=== PATIENT | female | born 1940 | race Caucasian/White ===

== ENCOUNTER 2016-07-01 01:50 | Emergency (ER) | payer OTHER ==
[~2016-07-01] VITALS: Ht 162.6 cm; Wt 68.7 kg
[~2016-07-01 01:50] MED LIST: ATIVAN1 MG PO; BUSPAR15 MG PO; CEFDINIR300 MG PO; CELEXA40 MG PO; CLONAZEPAM0.5 MG PO; COLACE100 MG PO; Cipro PO; Combivent IH; EFFEXOR37.5 MG PO; K-DUR20 MEQ PO; K-Dur PO; LISINOPRIL10 MG PO; LORAZEPAM0.5 MG PO; QUETIAPINE FUMA50 MG PO; REMERON15 M2 PO; TRAZODONE HCL50 MG PO; TYLENOL ARTHRI650 MG PO; XANAX0.5 MG PO; Xanax PO; ZESTRIL10 MG PO; ZITHROMAX Z-PA250 MG PO; ZYPREXA ZYDIS5 MG PO; Zestril,Prinivil PO; seroquel
[2016-07-01 02:45] LABS: MCH 28.9 PG (29.0-34.0); MCHC 34.2 G/DL (30.0-36.0); MCV 84.5 FL (83-99); MEAN PLAT.VOLUME 8.5 uM^3 (9.5-12.4); PLATELET COUNT 241 K/uL (156-360); RBC DIS.WIDTH-CV 14.5 % (11.8-14.6); RBC DIS.WIDTH-SD 43.5 % (39-53); RED BLOOD COUNT 4.26 M/uL (3.80-5.20); WHITE BLOOD COUNT 10.3 K/uL (4.1-10.2)
[2016-07-01 02:55] LABS: CHLORIDE 100 mEq/L (99-109); POTASSIUM 4.5 mEq/L (3.7-5.4); SODIUM 135 mEq/L (136-147)
[2016-07-01 02:56] LABS: GLUCOSE 98 mg/dL (70-99); PROTHROMBIN TIME 10.2 (9.2-11.2)
[2016-07-01 02:58] LABS: ANION GAP 12 MEQ/L (2-14)
[2016-07-01 03:00] LABS: GFR ESTIMATE (CALCULATED) 33 mL/min/
[2016-07-01 03:01] LABS: UREA NITROGEN (BUN) 31 mg/dL (9-23)
[2016-07-01 05:03] LABS: ADD MIUA? YES; BILIRUBIN NEGATIVE; BLOOD SMALL; COLOR YELLOW ((YELLOW)); GLUCOSE (STRIP) NEGATIVE; KETONES NEGATIVE; LEUKOCYTES NEGATIVE; NITRITE NEGATIVE; PROTEIN (STRIP) NEGATIVE; SPECIFIC GRAVITY 1.006 (1.000-1.030); UCUL ADDED? YES; UROBILINOGEN 0.2 MG/DL (0.2-1.0)
[2016-07-01 05:09] LABS: BACTERIA NONE SEEN /HPF; EPITHELIAL CELLS RARE /HPF; MUCUS TRACE /LPF; RED BLOOD CELLS 0-5 /HPF (0-5)
[2016-07-01 07:33] VITALS: BP 114/68
== END 2016-07-01 07:45 | disposition home or self-care (01) ==
LOC: EME → EDBD 01:50 → EME 07:45
PROVIDERS: Emergency Medicine
DX: F41.0 Panic disorder [episodic paroxysmal anxiety] (principal); S00.83XA Contusion of other part of head, initial encounter; W19.XXXA Unspecified fall, initial encounter; I10 Essential (primary) hypertension
CPT/HCPCS: 70450; 80048; 81003; 85027; 85610; 85730; 87086; 99281; 99284; J1630; J7030

== ENCOUNTER 2016-09-01 21:53 | Emergency (ER) | payer OTHER ==
[~2016-09-01] VITALS: Ht 165.1 cm; Wt 68.1 kg
[2016-09-02 00:03] LABS: ADD MIUA? NO; BILIRUBIN NEGATIVE; BLOOD NEGATIVE; COLOR YELLOW ((YELLOW)); GLUCOSE (STRIP) NEGATIVE; KETONES NEGATIVE; LEUKOCYTES NEGATIVE; NITRITE NEGATIVE; PROTEIN (STRIP) NEGATIVE; SPECIFIC GRAVITY 1.015 (1.000-1.030); UCUL ADDED? NO; UROBILINOGEN 0.2 MG/DL (0.2-1.0)
[2016-09-02 00:42] VITALS: BP 119/83
== END 2016-09-02 00:52 | disposition home or self-care (01) ==
LOC: EME 21:53
PROVIDERS: Emergency Medicine
DX: F41.9 Anxiety disorder, unspecified (principal); G47.00 Insomnia, unspecified; I10 Essential (primary) hypertension
CPT/HCPCS: 81003; 99281; 99284

== ENCOUNTER 2016-09-05 12:15 | Emergency (ER) | payer OTHER ==
[~2016-09-05] VITALS: Ht 167.6 cm; Wt 69.3 kg
[2016-09-05 13:05] LABS: BASOPHIL COUNT 0.1 K/uL (0-0.1); EOSINOPHIL (%) 3.4 % (0-5); EOSINOPHIL COUNT 0.2 K/uL (0-0.3); HEMATOCRIT 40.4 % (36.0-46.0); IMMATURE GRANULOCYTE (%) 0.6 % (0.0-0.7); INSTRUMENT ABS NEUTROPHIL CT 4.1 K/uL; MCH 27.5 PG (29.0-34.0); MCHC 32.2 G/DL (30.0-36.0); MCV 85.4 FL (83-99); MONOCYTE (%) 10.8 % (3-12); MONOCYTE COUNT 0.8 K/uL (0-0.8); NEUTROPHIL COUNT 4.1 K/uL (1.8-6.4); PLATELET COUNT 215 K/uL (156-360); RBC DIS.WIDTH-CV 13.1 % (11.8-14.6); RBC DIS.WIDTH-SD 41.1 % (39-53); RED BLOOD COUNT 4.73 M/uL (3.80-5.20); WHITE BLOOD COUNT 7.1 K/uL (4.1-10.2)
[2016-09-05 13:13] LABS: CHLORIDE 98 mEq/L (99-109); POTASSIUM 4.4 mEq/L (3.7-5.4); SODIUM 135 mEq/L (136-147)
[2016-09-05 13:15] LABS: GLUCOSE 98 mg/dL (70-99)
[2016-09-05 13:17] LABS: ANION GAP 14 MEQ/L (2-14); TOTAL BILIRUBIN 0.9 mg/dL (0.0-1.0)
[2016-09-05 13:18] LABS: SERUM ETHYL ALCOHOL < 10 mg/dL
[2016-09-05 13:19] LABS: ALKALINE PHOSPHATASE 99 IU/L (3-129); GFR ESTIMATE (CALCULATED) 46 mL/min/
[2016-09-05 13:20] LABS: UREA NITROGEN (BUN) 24 mg/dL (9-23)
[2016-09-05 13:21] LABS: DIRECT BILIRUBIN 0.3 mg/dL (0.0-0.3)
[2016-09-05 14:46] LABS: ADD MIUA? NO; BILIRUBIN NEGATIVE; BLOOD NEGATIVE; COLOR STRAW ((YELLOW)); GLUCOSE (STRIP) NEGATIVE; KETONES NEGATIVE; LEUKOCYTES NEGATIVE; NITRITE NEGATIVE; PROTEIN (STRIP) NEGATIVE; SPECIFIC GRAVITY 1.006 (1.000-1.030); UCUL ADDED? NO; UROBILINOGEN 0.2 MG/DL (0.2-1.0)
[2016-09-05 14:51] LABS: AMPHETAMINE NEGATIVE (500 ng/mL); BARBITURATES NEGATIVE (200 ng/mL); BENZODIAZEPINES PRESUMPTIVE POSITIVE (150 ng/mL); COCAINE NEGATIVE (150 ng/mL); INTERNAL CONTROLS VALID? YES; METHADONE NEGATIVE (200 ng/mL); METHAMPHETAMINE NEGATIVE (500 ng/mL); OPIATES (MORPHINE) NEGATIVE (100 ng/mL); OXYCODONE NEGATIVE (100 ng/mL); PHENCYCLIDINE NEGATIVE (25 ng/mL); PROPOXYPHENE NEGATIVE (300 ng/mL); THC CANNABINOIDS NEGATIVE (50 ng/mL); TRICYCLIC ANTIDEPRESSANTS NEGATIVE (300 ng/mL)
[2016-09-05 14:52] LABS: ADD MEDTOX COMMENT Y
[2016-09-05 15:19] LABS: BENZODIAZEPINES, URINE SCREEN POSITIVE (200 ng/mL)
[2016-09-05] MEDS ORDERED: CYMBALTA60 MG PO (20:31)
[2016-09-06 00:20] VITALS: BP 100/64
== END 2016-09-06 00:37 ==
LOC: EME → EDBD 12:15 → EME 09-06 00:37
PROVIDERS: Emergency Medicine
DX: F33.3 Major depressive disorder, recurrent, severe with psychotic symptoms (principal); F41.1 Generalized anxiety disorder; R41.82 Altered mental status, unspecified; I10 Essential (primary) hypertension
CPT/HCPCS: 70450; 71010; 80048; 80076; 81003; 84999; 85025; 90837; 93005; 99281; 99284; G0480; J1630